=== PATIENT | female | born 1945 | race Two or more races ===

== ENCOUNTER 2024-02-10 20:29 | Emergency (ER) | payer MEDICARE, OTHER ==
[~2024-02-10] VITALS: Ht 157.5 cm; Wt 86.2 kg
[2024-02-10] MEDS: BACI/NEOM/POLY B OINT PKT 1 UDPKT PACKET TP ONE (21:00)
[2024-02-10] MEDS: LIDOCAINE 1% INJ 50 ML MDV IJ ONE (21:00)
[2024-02-10] MEDS ORDERED: IOHEXOL-300 100 ML VIAL IV ONE (21:52)
[2024-02-10] MEDS ORDERED: IV NS 0.9% 250 ML IV ONE (21:53)
[2024-02-10] MEDS ORDERED: HYDROCODONE/APAP 5/325MG TABLET ONE (22:38)
[2024-02-10] MEDS ORDERED: TDAP [DIPH/PERTUSSIS/TET] 0.5 ML VIAL IM ONE (22:38)
[2024-02-10] MEDS: HYDROCODONE/APAP 5/325MG TABLET PO ONE (22:44)
[2024-02-10] MEDS: TDAP [DIPH/PERTUSSIS/TET] 0.5 ML VIAL IM ONE (22:44)
[2024-02-10 22:45] LABS: BASOPHILS # (AUTO) 0.1 K/uL (0.0-0.2); BASOPHILS % (AUTO) 0.9 % (0.0-2.0); EOSINOPHILS % (AUTO) 0.7 % (0.0-6.0); HEMATOCRIT 38 % (33-45); HEMOGLOBIN 12.7 g/dL (11.5-14.8); LYMPHOCYTES # (AUTO) 1.2 K/uL (0.8-4.8); LYMPHOCYTES % (AUTO) 18.8 % (20.0-44.0); MEAN CORPUSCULAR HEMOGLOBIN 33 PG (26.0-33.0); MEAN CORPUSCULAR HGB CONC 34 g/dl (31.0-36.0); MEAN CORPUSCULAR VOLUME 96 fL (82-100); MONOCYTES # (AUTO) 0.8 K/uL (0.1-1.30); MONOCYTES % (AUTO) 12.2 % (2.0-12.0); NEUTROPHILS # (AUTO) 4.4 K/uL (1.8-8.9); NEUTROPHILS % (AUTO) 67.4 % (43.0-81.0); PLATELET COUNT (AUTO) 180 K/uL (150-450); RED BLOOD CELL COUNT(AUTO) 3.92 MIL/uL (4.0-5.2); RED CELL DISTRIBUTION WIDTH 13.2 % (11.5-15.0); WHITE BLOOD COUNT (AUTO) 6.5 K/uL (4.3-11.0)
[2024-02-10 23:01] LABS: ALANINE AMINOTRANSFERASE 12 U/L (12-78); ALBUMIN 3.1 g/dL (3.4-5.0); ALKALINE PHOSPHATASE 140 U/L (46-116); ASPARTATE AMINOTRANSFERASE 13 U/L (15-37); BILIRUBIN,DIRECT 0.1 mg/dL (0.0-0.2); BILIRUBIN,TOTAL 0.4 mg/dL (0.2-1.0); CALCIUM, SERUM 8.8 mg/dL (8.5-10.1); CARBON DIOXIDE 30 mmol/L (21-32); CHLORIDE 107 mmol/L (98-107); CREATININE 0.9 mg/dL (0.6-1.3); GLUCOSE 103 mg/dL (74-106); SODIUM SERUM 142 mmol/L (136-145); UREA NITROGEN, BLOOD 13 mg/dL (7-18)
[2024-02-10 23:05] LABS: INR 0.97 (0.91-1.10); PARTIAL THROMBOPLASTIN TIME 23.4 SEC (24.3-34.3); PROTHROMBIN TIME 10.3 SECS (9.2-11.1)
[2024-02-11 01:49] VITALS: BP 132/66; TEMP 97.9; O2SAT 98
== END 2024-02-11 01:50 | disposition home or self-care (01) ==
LOC: ER 20:38
DX: S01.01XA Laceration without foreign body of scalp, initial encounter (principal); S46.911A Strain of unspecified muscle, fascia and tendon at shoulder and upper arm level, right arm, initial encounter; S20.213A Contusion of bilateral front wall of thorax, initial encounter; M25.562 Pain in left knee; M54.50 Low back pain, unspecified; G89.29 Other chronic pain; M79.605 Pain in left leg; E11.9 Type 2 diabetes mellitus without complications; I10 Essential (primary) hypertension; R07.89 Other chest pain; Z87.39 Personal history of other diseases of the musculoskeletal system and connective tissue; W01.0XXA Fall on same level from slipping, tripping and stumbling without subsequent striking against object, initial encounter; Y93.89 Activity, other specified; Y92.89 Other specified places as the place of occurrence of the external cause; Y99.8 Other external cause status
CPT/HCPCS: 12001; 36415; 70450; 71260; 73030; 73564; 74177; 80048; 80076; 85025; 85730; 86850; 90471; 90715; 99285; J7050; Q9967

== ENCOUNTER 2024-02-18 14:27 | Emergency (ER) | payer MEDICARE, OTHER ==
[~2024-02-18] VITALS: Ht 157.5 cm; Wt 86.2 kg
[2024-02-18 14:39] VITALS: BP 149/80; TEMP 98.4; O2SAT 96
== END 2024-02-18 15:22 | disposition home or self-care (01) ==
LOC: ER 14:44
DX: S01.01XD Laceration without foreign body of scalp, subsequent encounter (principal); E11.9 Type 2 diabetes mellitus without complications; I10 Essential (primary) hypertension; Z48.02 Encounter for removal of sutures; Z86.69 Personal history of other diseases of the nervous system and sense organs; X58.XXXD Exposure to other specified factors, subsequent encounter